=== PATIENT | female | born 1975 | race Caucasian/White ===

== ENCOUNTER → 2018-08-09 | Day surgery (SDC) | payer OTHER ==
[2018-08-07 14:49] VITALS: BMI 22.6
[~2018-08-09] MED LIST: GLUCAGON 1 MG/ML VIAL ONE; LACTATED RINGERS 1,000 ML IV ONE; PROPOFOL 10 MG/ML 20 ML VIAL IV ONE
--- NOTE | 2018-08-09 08:02 | P.GSHP ---
History of Present Illness H&P Date: 08/09/18 Chief Complaint: Right upper quadrant pain, cholelithiasis This is a 41-year-old female with history of right quadrant pain and cholelithiasis. Patient rents today for laparoscopic cholecystectomy. Past Medical History Past Medical History: Cancer, Seizure Disorder Additional Past Medical History / Comment(s): migraines, last seizure age 8, hx ulcers, kidney stones, cervical cancer History of Any Multi-Drug Resistant Organisms: None Reported Past Surgical History: Section, Hysterectomy Additional Past Surgical History / Comment(s): exploratory laparoscopy Past Anesthesia/Blood Transfusion Reactions: Family History of Problems w/ Anesthesia Additional Past Anesthesia/Blood Transfusion Reaction / Comment(s): mom "had problems coming out" not sure what problems Smoking Status: Never smoker - Past Family History Mother Family Medical History: No Reported History Medications and Allergies Home Medications Medication Instructions Recorded Confirmed Type Multivitamins, Thera [Multivitamin 1 tab PO DAILY 08/07/18 08/07/18 History (formulary)] Allergies Allergy/AdvReac Type Severity Reaction Status Date / Time No Known Allergies Allergy Verified 08/07/18 14:41 Surgical - Exam - General well developed, well nourished, no distress - Eyes PERRL - ENT normal pinna - Neck no masses - Respiratory normal expansion - Cardiovascular Rhythm: regular - Abdomen Abdomen: soft, non tender Assessment and Plan Assessment: Right upper quadrant pain, cholelithiasis. We'll perform laparoscopic cholecystectomy
[2018-08-09 08:21] VITALS: TEMP 97.7
--- NOTE | 2018-08-09 09:17 | P.GSHP ---
History of Present Illness H&P Date: 08/09/18 Chief Complaint: Screening colonoscopy, family history colon cancer This is a 43-year-old female who presents for colonoscopy. Patient has a strong family history: Cancer with her grandmother and 2 aunts having colon cancer. Patient's had some complaints of some vague abdominal pain. She's had some mild constipation. Past Medical History Past Medical History: Cancer, Seizure Disorder Additional Past Medical History / Comment(s): migraines, last seizure age 8, hx ulcers, kidney stones, cervical cancer History of Any Multi-Drug Resistant Organisms: None Reported Past Surgical History: Section, Hysterectomy Additional Past Surgical History / Comment(s): exploratory laparoscopy Past Anesthesia/Blood Transfusion Reactions: Family History of Problems w/ Anesthesia Additional Past Anesthesia/Blood Transfusion Reaction / Comment(s): mom "had problems coming out" not sure what problems Smoking Status: Never smoker - Past Family History Mother Family Medical History: No Reported History Medications and Allergies Home Medications Medication Instructions Recorded Confirmed Type Multivitamins, Thera [Multivitamin 1 tab PO DAILY 08/07/18 08/09/18 History (formulary)] Allergies Allergy/AdvReac Type Severity Reaction Status Date / Time codeine Allergy Anaphylaxis Verified 08/09/18 08:30 Surgical - Exam Vital Signs Temp Pulse Resp BP Pulse Ox 97.7 F 72 17 124/76 100 08/09/18 08:20 08/09/18 08:20 08/09/18 08:20 08/09/18 08:20 08/09/18 08:20 - General well developed, well nourished, no distress - Eyes PERRL - ENT normal pinna - Neck no masses - Respiratory normal expansion - Cardiovascular Rhythm: regular - Abdomen Abdomen: soft, non tender Assessment and Plan Assessment: Family history: Cancer Dull pain. We'll perform screening colonoscopy.
--- NOTE | 2018-08-09 09:39 | P.OP ---
Date of Procedure: 08/09/18 Preoperative Diagnosis: Screening colonoscopy Family history: Cancer Postoperative Diagnosis: Normal colonoscopy Tortuous colon Procedure(s) Performed: Colonoscopy Anesthesia: MAC Surgeon: Kehinde Baumann Pathology: none sent Condition: stable Disposition: PACU Description of Procedure: The patient's placed on the endoscopy table in the lateral position. She received IV sedation. Digital rectal exam was performed which revealed no abnormalities. The flexible colonoscope was then placed patient anus and passed throughout colon. The colonoscope got to the level of the proximal transverse colon. However due to a very tortuous colon could not be advanced. Several times made to maneuver the colonoscope into the right colon was impossible. Glucagon was given as well. At this point the scope was withdrawn. The transverse colon descending colon and sigmoid colon appeared normal. Scope was then brought back the rectum and this appeared normal. Scope withdrawn for patient. Patient scheduled for a barium enema.
[2018-08-09 10:06] VITALS: BP 125/72; PULSE 78; RESP 18
--- NOTE | 2018-08-09 11:07 | XR ---
EXAMINATION TYPE: XR abdomen 1V DATE OF EXAM: 08/09/2018 COMPARISON: NONE HISTORY: Incomplete colonoscopy TECHNIQUE: One view abdominal series FINDINGS: The osseous structures are intact. The bowel gas pattern is nonspecific. Extensive air throughout th e large bowel likely related to colonoscopy. Assessment for free air limited as the upper abdomen is not entirely included. Calcifications the pelvis likely vascular. IMPRESSION: 1. A large amount of retained air throughout the colon likely related to colonoscopy procedure.
== END | disposition home or self-care (01) ==
LOC: ORWHC2ENDO 07:58
PROVIDERS: ATTEND Surgery
DX: Z12.11 Encounter for screening for malignant neoplasm of colon (principal); Q43.9 Congenital malformation of intestine, unspecified; Z80.0 Family history of malignant neoplasm of digestive organs; G40.909 Epilepsy, unspecified, not intractable, without status epilepticus; G43.909 Migraine, unspecified, not intractable, without status migrainosus; Z85.41 Personal history of malignant neoplasm of cervix uteri; Z87.442 Personal history of urinary calculi; Z88.5 Allergy status to narcotic agent
CPT/HCPCS: 74018; J1610; J2704; G0105

== ENCOUNTER → 2018-08-20 | Outpatient (CLI) | payer OTHER ==
--- NOTE | 2018-08-21 09:05 | FL ---
EXAMINATION TYPE: FL barium enema w air contrast DATE OF EXAM: 08/20/2018 COMPARISON: NONE HISTORY: Failed colonoscopy TECHNIQUE: A double contrast barium enema study is performed. 25 images submitted and 5 minutes and 15 seconds of fluoroscopy. FINDINGS: Clip Riveter view of the abdomen shows overall non-obstructive bowel gas pattern. Sigmoid colon was markedly redundant. Assessment of the right colon was severely limited due to retai andreia fluid and noncoating of the bowel wall. Retained fecal debris limits assessment for small polyps. This results in nondiagnostic assessment of the right colon. No evidence of any sizable mass, obstructing or constricting lesion throughout the visualized colon. No significant diverticular disease is noted. IMPRESSION: 1. Marked redundancy of the sigmoid colon. No evidence of obstruction sizable mass. Small polyp parti cularly within the sigmoid colon could not be excluded due to the extreme redundancy of the colon and retained fecal debris. Assessment of the right colon is suboptimal secondary to retained fluid withi n the colon and lack of barium coating the wall of the colon. If clinically warranted given limitatio n of exam consider virtual colonoscopy or repeat colonoscopy.
== END | disposition home or self-care (01) ==
LOC: RADFLMAIN 10:58
PROVIDERS: ATTEND Surgery
DX: Z12.11 Encounter for screening for malignant neoplasm of colon (principal); Q43.8 Other specified congenital malformations of intestine; K59.09 Other constipation
CPT/HCPCS: 74280

== ENCOUNTER → 2019-01-06 | Outpatient (CLI) | payer OTHER ==
--- NOTE | 2019-01-08 10:53 | MM ---
Reason for exam: screening (asymptomatic). Last mammogram was performed 2 years and 8 months ago. History: Patient history of other cancer. Physical Findings: A clinical breast exam by your physician is recommended on an annual basis and results should be correlated with mammographic findings. MG Screening Mammo w CAD Bilateral CC and MLO view(s) were taken. Prior study comparison: May 17, 2016, mammogram, performed at [place]. The breast tissue is heterogeneously dense. This may lower the sensitivity of mammography. Dystrophic appearing calcifications partially visualized far posterior inferior left breast. No significant changes when compared with prior studies. ASSESSMENT: Benign, BI-RAD 2 RECOMMENDATION: Routine screening mammogram of both breasts in 1 year.
== END | disposition home or self-care (01) ==
LOC: RADMAMWWP 08:06
PROVIDERS: ATTEND Family Medicine
DX: Z12.31 Encounter for screening mammogram for malignant neoplasm of breast (principal)
CPT/HCPCS: 77067

== ENCOUNTER → 2020-03-11 | Day surgery (SDC) | payer OTHER ==
[2020-03-10 09:16] VITALS: BMI 18.9
[~2020-03-11] MED LIST changes: -GLUCAGON 1 MG/ML VIAL ONE; -LACTATED RINGERS 1,000 ML IV ONE; +LACTATED RINGERS 1,000 ML IV SCH; +LIDOCAINE 1% (10MG/ML) FOR IV START INTRADERMA PRN; +LIDOCAINE 1% INJ 10MG/ML (20 ML MDV) ONE
[2020-03-11 09:38] VITALS: TEMP 97.8
--- NOTE | 2020-03-11 10:39 | P.GSHP ---
History of Present Illness H&P Date: 03/11/20 Chief Complaint: Family history of colon cancer Cancer, weight loss This a 44-year-old female who has a family history of colon cancer. Patient presents today for colonoscopy. She's also had approximately 20 pound weight loss over the last 3 months. Past Medical History Past Medical History: Cancer, Seizure Disorder Additional Past Medical History / Comment(s): migraines, last seizure age 8, hx ulcers, kidney stones, cervical cancer, HAS BEEN LOSING WEIGHT & ABD. PAIN History of Any Multi-Drug Resistant Organisms: None Reported Past Surgical History: Section, Hysterectomy Additional Past Surgical History / Comment(s): exploratory laparoscopy. COLONOSCOPY Past Anesthesia/Blood Transfusion Reactions: Family History of Problems w/ Anesthesia Additional Past Anesthesia/Blood Transfusion Reaction / Comment(s): mom "had problems coming out" not sure what problems Smoking Status: Never smoker - Past Family History Mother Family Medical History: No Reported History Medications and Allergies Home Medications Medication Instructions Recorded Confirmed Type Multivitamins, Thera [Multivitamin 1 tab PO DAILY 08/07/18 03/11/20 History (formulary)] Allergies Allergy/AdvReac Type Severity Reaction Status Date / Time codeine Allergy Anaphylaxis Verified 03/10/20 09:09 Surgical - Exam Vital Signs Temp Pulse Resp BP Pulse Ox 97.8 F 103 H 16 105/74 100 03/11/20 09:35 03/11/20 09:35 03/11/20 09:35 03/11/20 09:35 03/11/20 09:35 - General well developed, well nourished, no distress - Eyes PERRL - ENT normal pinna - Neck no masses - Respiratory normal expansion - Cardiovascular Rhythm: regular - Abdomen Abdomen: soft, non tender Assessment and Plan Assessment: Family history: Cancer Weight loss We'll perform colonoscopy
--- NOTE | 2020-03-11 11:00 | P.OP ---
Date of Procedure: 03/11/20 Preoperative Diagnosis: Family history colonoscopy Postoperative Diagnosis: Normal colonoscopy Procedure(s) Performed: Colonoscopy Anesthesia: MAC Surgeon: Kehinde Baumann Pathology: none sent Condition: stable Disposition: PACU Description of Procedure: The patient's placed on the endoscopy table in the lateral position. She received IV sedation. Digital rectal exam was performed which revealed no abnormalities. Flexible colonoscope was then placed patient anus passed rotator entire colon. The ileocecal valve was not visualized secondary to tortuosity valve. Multiple times made to enter the cecum was impossible. Scope was withdrawn. The remainder the ascending colon, transverse colon and descending colon appeared normal. The sigmoid colon and rectum appeared normal. Scope was withdrawn for patient
[2020-03-11 11:24] VITALS: BP 124/81; PULSE 65; RESP 16
== END | disposition home or self-care (01) ==
LOC: ORWHC2ENDO 09:21
PROVIDERS: ATTEND Surgery
DX: R63.4 Abnormal weight loss (principal); Q43.9 Congenital malformation of intestine, unspecified; Z80.0 Family history of malignant neoplasm of digestive organs; G40.909 Epilepsy, unspecified, not intractable, without status epilepticus; G43.909 Migraine, unspecified, not intractable, without status migrainosus; Z88.5 Allergy status to narcotic agent; Z90.710 Acquired absence of both cervix and uterus; Z85.41 Personal history of malignant neoplasm of cervix uteri; Z86.69 Personal history of other diseases of the nervous system and sense organs; Z98.891 History of uterine scar from previous surgery; Z98.890 Other specified postprocedural states
CPT/HCPCS: 45378; J2001; J2704

== ENCOUNTER → 2021-06-22 | Outpatient (CLI) | payer OTHER ==
[2021-06-22 18:47] LABS: T4, Free (Free Thyroxine) 1.16 ng/dL (0.800-1.800)
== END | disposition home or self-care (01) ==
LOC: LABWHC1 14:19
PROVIDERS: ATTEND Obstetrics & Gynecology
DX: R53.81 Other malaise (principal); R23.2 Flushing
CPT/HCPCS: 36415; 84439; 84443

== ENCOUNTER → 2021-10-10 | Outpatient (CLI) | payer OTHER ==
[2021-10-10 12:06] LABS: African American GFR (CKD) >90 (>60 ml/min/1.73 sqM); Blood Urea Nitrogen 10 mg/dL (7-17); Non-African American GFR(CKD) >90 (>60 ml/min/1.73 sqM)
--- NOTE | 2021-10-10 13:39 | CT ---
EXAMINATION TYPE: CT abdomen pelvis w con CT DLP: 403.40 mGycm, Automated exposure control for dose reduction was used. DATE OF EXAM: 10/10/2021 12:41 PM COMPARISON: None. CLINICAL INDICATION:Female, 46 years old with history of R10.32 Left lower quadrant pain; Lt lower qu adrant pain TECHNIQUE: Standard CT of the abdomen and pelvis following the administration of 70 cc of Isovue 30 0 IV contrast material and oral contrast. Coronal and sagittal reformats were performed. FINDINGS: LOWER CHEST: Unremarkable ABDOMEN LIVER: Unremarkable GALLBLADDER AND BILE DUCTS: Unremarkable. PANCREAS: Unremarkable. SPLEEN: Unremarkable. ADRENAL GLANDS: Unremarkable. KIDNEYS AND URETERS: No evidence of hydronephrosis. Prominent right extra renal pelvis. Punctate righ t lower pole nonobstructive renal calculus. The ureters are unremarkable. PELVIS BLADDER: Unremarkable REPRODUCTIVE: Post hysterectomy. Vaginal cuff appears intact. Pessary device identified. ABDOMEN & PELVIS STOMACH AND BOWEL: Stomach and duodenum are unremarkable. No focal wall thickening or surrounding inf lammatory changes. Enteric contrast reaches the rectum. No evidence of bowel obstruction. PERITONEUM: No evidence of pneumoperitoneum or free fluid. VASCULATURE: No evidence of aortic aneurysm. MUSCULOSKELETAL: No acute osseous abnormalities. No suspicious osseous lesions. Degenerative changes of the lumbar spine most pronounced at L5-S1. LYMPH NODES: Enlarged 1.2 cm right external iliac chain lymph node (series 3, image 60). No other con cerning lymphadenopathy. SOFT TISSUE/ABDOMINAL WALL: Unremarkable IMPRESSION: 1. No acute abdominal/pelvic process. 2. Enlarged 1.2 cm right external iliac chain lymph node. Correlation with prior imaging is recommend ed to assess for interval change with etiologies being reactive versus metastatic disease. 3. Nonobstructive right renal calculus.
== END | disposition home or self-care (01) ==
LOC: RADCTMAIN 11:02
PROVIDERS: ATTEND Family Medicine
DX: N20.0 Calculus of kidney (principal); R10.32 Left lower quadrant pain
CPT/HCPCS: 82565; 84520; 74177; 36415; Q9967

== ENCOUNTER → 2021-10-19 | Outpatient (CLI) | payer OTHER ==
--- NOTE | 2021-10-19 11:08 | FL ---
EXAMINATION TYPE: FL barium enema w air contrast DATE OF EXAM: 10/19/2021 COMPARISON: Prior barium enema 08/20/2018, CT 10/10/2021 HISTORY: K 59.00, R 10.32 TECHNIQUE: A total contrast barium enema study is performed. A total 4 minutes 46 seconds of fluoro scopic time was utilized during procedure and 26 images obtained. FINDINGS: Wood Casket Assembler view of the abdomen shows overall non-obstructive bowel gas pattern. Patient states the preparation may been inadequate with the exam No evidence of any mass, obstructing or constricting lesion throughout the colon. Some subcentimeter filling defects likely due to retained stool in the left colon. No significant diverticular disease is noted. Redundancy of the sigmoid colon may limit evaluation. Some limitations in evaluation of the cecum Appendix was not filled. The terminal ileum was not refluxed. IMPRESSION: Normal barium enema study within the limitations of the exam.
== END | disposition home or self-care (01) ==
LOC: RADFLMAIN 08:49
PROVIDERS: ATTEND Surgery
DX: K59.00 Constipation, unspecified (principal); R10.32 Left lower quadrant pain
CPT/HCPCS: 74280

== ENCOUNTER 2021-10-24 09:56 | Day surgery (SDC) | payer OTHER ==
[2021-10-21 08:28] VITALS: BMI 21.6
[2021-10-24 10:23] VITALS: RESP 16; TEMP 98
[2021-10-24] MEDS ORDERED: LACTATED RINGERS 1,000 ML IV ONE (10:28)
[2021-10-24] MEDS ORDERED: PROPOFOL 10 MG/ML 20 ML VIAL IV ONE (11:20)
--- NOTE | 2021-10-24 11:40 | P.GSHP ---
History of Present Illness H&P Date: 10/24/21 Chief Complaint: Constipation, change in bowel habits This a 46-year-old female who's had complaints of lower abdominal pain and constipation. Patient presents today for colonoscopy. Her recent barium enema shows significant redundancy of the transverse left and sigmoid colon. Past Medical History Past Medical History: Cancer, Osteoarthritis (OA), Seizure Disorder Additional Past Medical History / Comment(s): migraines, epilepsy as a child- last seizure age 8, kidney stone, cervical cancer with surgery & radiation tx (2008)., [id number] diet and monitors cbg., diarrhea and pain left abd. History of Any Multi-Drug Resistant Organisms: None Reported Past Surgical History: Section, Hysterectomy Additional Past Surgical History / Comment(s): exploratory laparoscopy. COLONOSCOPY- states difficulty passing scope due to "twisted bowel). Past Anesthesia/Blood Transfusion Reactions: No Reported Reaction Additional Past Anesthesia/Blood Transfusion Reaction / Comment(s): mother ponv, daughters -violent Past Psychological History: Anxiety Smoking Status: Never smoker Past Alcohol Use History: Occasional Past Drug Use History: None Reported - Past Family History Mother Family Medical History: No Reported History Medications and Allergies Home Medications Medication Instructions Recorded Confirmed Type Estrogen Ring 1 dose VAGINAL DIRECTED 10/21/21 10/24/21 History Multivit with Calcium,Iron,Min 1 each PO DAILY 10/21/21 10/24/21 History [Women's Multivitamin] Vitamin B Complex 1 each PO DAILY 10/21/21 10/24/21 History Allergies Allergy/AdvReac Type Severity Reaction Status Date / Time Iodinated Contrast Media Allergy Unknown hives,dizzy Verified 10/24/21 10:14 ,nausea iodine Allergy Unknown hives, Verified 10/24/21 10:14 dizzy, nauseaous codeine Allergy Anaphylaxis Verified 10/24/21 10:14 Surgical - Exam Vital Signs Temp Pulse Resp BP Pulse Ox 98.0 F 56 L 16 113/55 99 10/24/21 10:18 10/24/21 10:18 10/24/21 10:18 10/24/21 10:18 10/24/21 10:18 - General well developed, well nourished, no distress - Eyes PERRL - ENT normal pinna - Neck no masses - Respiratory normal expansion - Cardiovascular Rhythm: regular - Abdomen Abdomen: soft, non tender Assessment and Plan Assessment: Constipation Redundant: We'll perform colonoscopy
--- NOTE | 2021-10-24 11:41 | P.OP ---
Date of Procedure: 10/24/21 Preoperative Diagnosis: Constipation Postoperative Diagnosis: Constipation Abdomen: Procedure(s) Performed: Colonoscopy Anesthesia: MAC Surgeon: Kehinde Baumann Pathology: none sent Condition: stable Disposition: PACU Description of Procedure: The patient's placed on the endoscopy table in the lateral position. She received IV sedation. Digital rectal exam was performed which revealed no ebonized. Flexible colonoscope was then placed patient anus and passed throughout the colon. Scope couldn't be passed beyond the left colon secondary to significant tortuosity valve. This point scope withdrawn.
[2021-10-24 11:44] VITALS: PULSE 55
[2021-10-24 11:58] VITALS: BP 117/74
== END 2021-10-24 12:30 | disposition home or self-care (01) ==
LOC: ORWHC2ENDO 09:56
PROVIDERS: ATTEND Surgery
DX: K59.00 Constipation, unspecified (principal); G43.909 Migraine, unspecified, not intractable, without status migrainosus; R73.03 Prediabetes; R19.7 Diarrhea, unspecified; F41.9 Anxiety disorder, unspecified; M19.90 Unspecified osteoarthritis, unspecified site; G40.909 Epilepsy, unspecified, not intractable, without status epilepticus; Z85.41 Personal history of malignant neoplasm of cervix uteri; Z92.3 Personal history of irradiation; Z98.891 History of uterine scar from previous surgery; Z90.710 Acquired absence of both cervix and uterus; Z98.890 Other specified postprocedural states; Z91.041 Radiographic dye allergy status; Z88.5 Allergy status to narcotic agent; Z91.048 Other nonmedicinal substance allergy status
CPT/HCPCS: 45330; J2704; 45378

== ENCOUNTER → 2022-06-19 | Outpatient (CLI) | payer OTHER ==
[2022-06-19 09:37] LABS: African American GFR (CKD) >90 (>60 ml/min/1.73 sqM); Blood Urea Nitrogen 14 mg/dL (7-17); Non-African American GFR(CKD) >90 (>60 ml/min/1.73 sqM)
--- NOTE | 2022-06-19 11:22 | CT ---
EXAMINATION TYPE: CT abdomen pelvis w con DATE OF EXAM: 06/19/2022 COMPARISON: 10/10/2021 HISTORY: 47-year-old female R10.32; Z87.11; R63.4, LLQ abdominal pain and unexplained weight loss. TECHNIQUE: Contiguous axial scanning of the abdomen and pelvis following administration of 100 ml Iso reina 300 IV contrast. Delayed images through the kidneys and coronal/sagittal reconstructions perform ed. CT DLP: 389.2 mGycm Automated exposure control for dose reduction was used. FINDINGS: Heart normal size without pericardial effusion. Lung bases clear without pleural effusion. There appears to be some new fold thickening along the fundus of the stomach on axial image 13. This persists on the delayed kidney images. No focal liver lesion or biliary ductal dilatation. Portal venous system is patent. Gallbladder, adrenal glands, spleen, and pancreas show no gross abnormality. Unchanged asymmetric fullness right renal collecting system but with symmetric uptake and excretion o f contrast on both sides. A few tiny benign cortical cysts are present measuring 5 mm and smaller. Nonobstructive 3 mm right lo wer pole renal calculus. No dilated small bowel, free fluid, or free air. No obvious mesenteric or retroperitoneal lymphadenop athy. The degree of soft tissue crowding from the paucity of intra-abdominal fat limits evaluation. Unable to clearly identify the appendix. No secondary findings of acute appendicitis. Redundant, low hanging transverse colon. Oral contrast progressed to the upper rectum. No pericolonic inflammatory change seen. Bladder is urine distended. Uterus surgically absent. A pessary device is present. Mild pelvic free f luid likely physiologic. Ovaries not clearly delineated due to extensive chronic structures in the pe lvis. No obvious pelvic lymphadenopathy, again, assessment limited. Stable area of 1.3 cm soft tissue thickening right pelvic sidewall, axial image 62 may relate to the right ovary. Bones: Moderate degenerative disc disease L5-S1. No osseous destructive process. IMPRESSION: 1. NEW FOCAL THICKENING ALONG THE FUNDUS OF THE STOMACH. CORRELATE FOR POTENTIAL GASTRITIS. 2. UNCHANGED 1.3 CM NODULAR SOFT TISSUE THICKENING ALONG THE RIGHT PELVIC SIDEWALL. POSSIBLY RELATED TO THE RIGHT OVARY. AN ENLARGED LYMPH NODE REMAINS IN THE DIFFERENTIAL. WE DO NOTE PRIOR HYSTERECTOMY WITH A PESSARY DEVICE IN PLACE. CORRELATE WITH PRIOR SURGICAL HISTORY. 3. Mild to moderate pelvic free fluid likely physiologic. Again, clinically correlate.
== END | disposition home or self-care (01) ==
LOC: RADCTMAIN 08:32
PROVIDERS: ATTEND Internal Medicine Gastroenterology
DX: K31.89 Other diseases of stomach and duodenum (principal); N28.9 Disorder of kidney and ureter, unspecified; R10.32 Left lower quadrant pain; R63.4 Abnormal weight loss; R59.0 Localized enlarged lymph nodes; R91.1 Solitary pulmonary nodule; Z90.710 Acquired absence of both cervix and uterus; Z87.11 Personal history of peptic ulcer disease
CPT/HCPCS: 82565; 84520; 74177; 36415; Q9967

== ENCOUNTER → 2022-11-29 | Outpatient (CLI) | payer OTHER ==
--- NOTE | 2022-11-30 07:59 | MM ---
Reason for Exam: Screening (asymptomatic). Last mammogram was performed 3 year(s) and 10 month(s) ago. Patient History: Menarche at age 10. First Full-Term at age 22. Hysterectomy at age 38. Postmenopausal. Risk Values: Silvia 5 year model risk: 0.8%. NCI Lifetime model risk: 9.3%. Prior Study Comparison: 05/17/2016 Screening Mammogram, [place]. 01/06/2019 Bilateral Screening Mammogram, [facility]. Tissue Density: The breast tissue is heterogeneously dense. This may lower the sensitivity of mammography. Findings: Analyzed By CAD. There is no suspicious group of microcalcifications benign calcification within left breast. No new suspicious masses in the right breast. Asymmetry demonstrated within the left breast only on the cc view medially at posterior depth. Overall Assessment: Incomplete: need additional imaging evaluation, BI-RAD 0 Management: Diagnostic Mammogram of the left breast. A clinical breast exam by your physician is recommended on an annual basis and results should be correlated with mammographic findings. [facility] will attempt to contact patient to return for supplemental views and ultrasound if indicated. Note on Silvia scores and lifetime risk: 1. A Silvia score greater than 3% is considered moderate risk. If this is the case, consider specialist referral to assess eligibility for a risk reducing agent. If overall lifetime risk for the development of breast cancer is 20% or higher, the patient may qualify for future screening with alternating mammogram and breast MRI. Electronically signed and approved by: Maxime Kearns D.O.
== END | disposition home or self-care (01) ==
LOC: RADMAMWWP 09:45
DX: Z12.31 Encounter for screening mammogram for malignant neoplasm of breast (principal); Z78.0 Asymptomatic menopausal state
CPT/HCPCS: 77067

== ENCOUNTER → 2022-12-01 | Outpatient (CLI) | payer OTHER ==
--- NOTE | 2022-12-01 08:45 | MM ---
Reason for Exam: Additional evaluation requested from abnormal screening. Last screening mammogram was performed less than 1 month ago. Patient History: Menarche at age 10. First Full-Term at age 22. Hysterectomy at age 38. Postmenopausal. Risk Values: Silvia 5 year model risk: 0.8%. NCI Lifetime model risk: 9.3%. Prior Study Comparison: 05/17/2016 Screening Mammogram, [place]. 01/06/2019 Bilateral Screening Mammogram, [facility]. 11/29/2022 Bilateral MG screening mammo w CAD, [facility]. Tissue Density: Left: The breast tissue is heterogeneously dense. This may lower the sensitivity of mammography. Findings: Analyzed By CAD. Asymmetry within the left breast disperses compression and is consistent with breast tissue. No suspicious group of calcifications. Overall Assessment: Benign, BI-RAD 2 Management: Screening Mammogram of both breasts in 1 year. A clinical breast exam by your physician is recommended on an annual basis and results should be correlated with mammographic findings. This exam should not preclude additional follow-up of suspicious palpable abnormalities. Results were given to the patient verbally at the time of exam. Note on Silvia scores and lifetime risk: 1. A Silvia score greater than 3% is considered moderate risk. If this is the case, consider specialist referral to assess eligibility for a risk reducing agent. If overall lifetime risk for the development of breast cancer is 20% or higher, the patient may qualify for future screening with alternating mammogram and breast MRI. Electronically signed and approved by: Maxime Kearns D.O.
== END | disposition home or self-care (01) ==
LOC: RADMAMWWP 08:17
DX: R92.8 Other abnormal and inconclusive findings on diagnostic imaging of breast (principal); Z78.0 Asymptomatic menopausal state
CPT/HCPCS: 77061; 77065